=== PATIENT | female | born 1995 | race Asian ===

== ENCOUNTER 2017-06-06 12:24 | Emergency (ER) | payer OTHER ==
[2017-06-06 12:33] VITALS: BP 102/59; PULSE 90; RESP 18; TEMP 98.6; O2SAT 95
--- NOTE | 2017-06-06 14:25 | EDPHY ---
H & P Smoking Status: Current every day smoker HPI/ROS: Chief complaint: Cold symptoms History of present illness: This is a 21-year-old female who presents to the emergency department for evaluation of cold symptoms. Patient reports the onset of symptoms over the last day. She reports fever, runny nose, nasal congestion , sore throat, cough, body aches and fatigue. Symptoms have been persistent. She denies other associated signs or symptoms including no trouble breathing, no rash. Review of systems: A 10 point review of systems was obtained and other than described above was negative (Sandro Machado) Physical Exam: General Appearance: Alert, nontoxic. Eyes: Pupils equal and round no pallor or injection. ENT, Mouth: Mucous membranes moist. Tympanic membranes, external auditory canals , external ears and surrounding soft tissue including over the mastoids are unremarkable. Nasopharynx is mildly injected. There is clear rhinorrhea. Oropharynx is injected. There is no edema. There is no exudate. There is no asymmetry. The uvula is midline. No elevation of the tongue. There is no hoarseness, no drooling, no trismus, no stridor. Respiratory: There are no retractions, lungs are clear to auscultation. Cardiovascular: Regular rate and rhythm. Neurological: Alert and oriented x4. Strength and sensation intact and symmetrical. No meningismus. Skin: Warm and dry, no rashes. Musculoskeletal: Neck is supple non tender. Extremities are symmetrical, full range of motion. Psychiatric: Patient is oriented X 3, there is no agitation. (Sandro Machado) Constitutional: Initial Vital Signs Temperature (C) 37 C 06/06/17 12:29 Heart Rate 90 06/06/17 12:29 Respiratory Rate 18 06/06/17 12:29 Blood Pressure 102/59 L 06/06/17 12:29 O2 Sat (%) 95 06/06/17 12:29 O2 Delivery Mode Room Air Allergies/Adverse Reactions: No Known Allergies Allergy (Verified 06/06/17 12:28) Home Medications: Medication Instructions Recorded [place] Carbonate 06/06/17 Oseltamivir Phosphate [Tamiflu 75 75 mg PO BID 5 Days cap 06/06/17 mg (*)] Zoloft 100mg (*) 06/06/17 MDM/Departure - [facility] ED Course/Re-evaluation: Patient seen under the supervision of my secondary supervising physician Dr. Janell Shepherd. Patient presents to the emergency department for cold symptoms. She is influenza A positive. She is nontoxic. Vital signs are stable. She is within treatment time frame for Tamiflu. I have discussed the risks and benefits of treatment using this versus symptomatic care while she heals. She would like to start Tamiflu. This is prescribed. Home care is discussed. Return precautions are given. The patient voiced understanding and agreement with plan. (Sandro Machado) The patient was evaluated and managed by the physician supply chain assistant. I have reviewed this chart and I agree with the findings and plan of care as documented , as indicated by my signature. I am the secondary supervising physician. ( Janell Shepherd) Differential Diagnosis: Included but not limited to influenza, other viral syndromes, URI including sinusitis and pharyngitis (Sandro Machado) - Depart Disposition: Home, Routine, Self-Care Clinical Impression: Influenza A Condition: Good Instructions: Influenza (ED) Additional Instructions: Follow-up with a primary care doctor this week for recheck If symptoms worsen or new symptoms develop return to the emergency room for recheck Prescriptions: Oseltamivir Phosphate [Tamiflu 75 mg (*)] 75 mg PO BID 5 Days cap Referrals: NONE *PRIMARY CARE P,. [Primary Care Provider] - As per Instructions [facility],. [Clinic] - As per Instructions
== END 2017-06-06 14:38 | disposition home or self-care (01) ==
DX: J10.1 Influenza due to other identified influenza virus with other respiratory manifestations (principal); F17.200 Nicotine dependence, unspecified, uncomplicated

== ENCOUNTER 2018-08-27 01:11 | Emergency (ER) | payer OTHER ==
[2018-08-27] MEDS ORDERED: LIDOCAINE 2% VISCOUS 15 ML UDCUP PO ONE (01:32)
[2018-08-27] MEDS ORDERED: MAG HYDROX/AL HYDROX/SIMETH 30 ML UDCUP PO ONE (01:32)
--- NOTE | 2018-08-27 01:32 | EDPHY ---
H & P Stated Complaint: pt c/o abd pain, intermittant N/D Time Seen by Provider: 08/27/18 01:20 HPI/ROS: Chief Complaint: Abdominal pain HPI: 23-year-old woman presenting with 1 week of waxing waning epigastric abdominal pain. Patient states the pain is there during course of the day. Is not move. Is about a 5/10. Some nausea but no vomiting. She is having some loose stools every other day. No blood or dark black stools. She does have a history of an appendectomy in the past. No fevers or chills. No chest pain or shortness of breath. There are no aggravating or alleviating factors. Last menstrual cycle was 2 weeks ago. It was normal. Patient is not believe she is . ROS: 10 systems were reviewed and were negative except those elements noted in the HPI. PMH: Bipolar disorder Social History: Uses E cigarettes, no alcohol, no recreational drug use Family History: non-contributory Physical Exam: Gen: Awake, Alert, No Distress HEENT: Nose: no rhinorrhea Eyes: PERRLA, EOMI Mouth: Moist mucosa Neck: Supple, no JVD Chest: nontender, lungs clear to auscultation Heart: S1, S2 normal, no murmur Abd: Soft, mild upper abdominal tenderness, no guarding Back: no CVA tenderness, no midline tenderness Ext: no edema, non-tender Skin: no rash Neuro: CN II-XII intact, Sensation grossly intact, Strength 5/5 in bilateral upper and lower extremities - Personal History LMP (Females 10-55): 8-14 Days Ago Current Tetanus Diphtheria and Acellular Pertussis (TDAP): Yes - Medical/Surgical History Hx Asthma: No Hx Chronic Respiratory Disease: No Hx Diabetes: No Hx Cardiac Disease: No Hx Renal Disease: No Hx Cirrhosis: No Hx Alcoholism: No Hx HIV/AIDS: No Hx Splenectomy or Spleen Trauma: No Other PMH: depression - Social History Smoking Status: Current every day smoker Constitutional: Initial Vital Signs Temperature (C) 37 C 08/27/18 01:13 Heart Rate 77 08/27/18 01:13 Respiratory Rate 16 08/27/18 01:13 Blood Pressure 109/68 08/27/18 01:13 O2 Sat (%) 96 08/27/18 01:13 O2 Delivery Mode Room Air Allergies/Adverse Reactions: No Known Allergies Allergy (Verified 06/06/17 12:28) Home Medications: Medication Instructions Recorded [place] Carbonate 06/06/17 Zoloft 100mg (*) 06/06/17 Ativan 08/27/18 Medical Decision Making ED Course/Re-evaluation: 23-year-old presenting with 1 week of epigastric abdominal pain. Abdomen is soft and benign. Laboratory evaluations are normal. She is not . She has had an appendectomy and in the past. No findings suggestive acute surgical or infectious process. I think her symptoms are more likely consistent with peptic ulcer disease or gastritis. Will start her on famotidine, follow up with primary care as an outpatient. - Data Points Laboratory Results: Laboratory Results 08/27/18 01:40 08/27/18 01:40 08/27/18 08/27/18 08/27/18 01:55 01:40 01:40 WBC RBC Hgb Hct MCV MCH MCHC RDW Plt Count MPV Neut % (Auto) Lymph % (Auto) [place] % (Auto) Eos % (Auto) Baso % (Auto) Nucleat RBC Rel Count Absolute Neuts (auto) Absolute Lymphs (auto) Absolute Monos (auto) Absolute Eos (auto) Absolute Basos (auto) Absolute Nucleated RBC Immature Gran % Immature Gran # Sodium 139 mEq/L mEq/L (135-145) Potassium 3.8 mEq/L mEq/L (3.5-5.2) Chloride 105 mEq/L mEq/L (97-110) Carbon Dioxide 20 mEq/l L mEq/l (22-31) Anion Gap 14 mEq/L mEq/L (6-14) BUN 10 mg/dL mg/dL (7-23) Creatinine 0.6 mg/dL mg/dL (0.6-1.0) Estimated GFR > 60 Glucose 90 mg/dL mg/dL (70-100) Calcium 10.0 mg/dL mg/dL (8.5-10.4) Total Bilirubin 0.9 mg/dL mg/dL (0.1-1.4) AST 19 IU/L IU/L (14-46) ALT 22 IU/L IU/L (9-52) Alkaline Phosphatase 56 IU/L IU/L (38-126) Total Protein 8.0 g/dL g/dL (6.3-8.2) Albumin 4.9 g/dL g/dL (3.5-5.0) Lipase 50 IU/L IU/L (23-300) Beta HCG, Qual NEGATIVE Urine Color YELLOW Urine Appearance HAZY Urine pH 5.0 (5.0-7.5) Ur Specific [place] 1.026 (1.002-1.030) Urine Protein NEGATIVE (NEGATIVE) Urine Ketones 1+ H (NEGATIVE) Urine Blood NEGATIVE (NEGATIVE) Urine Nitrate NEGATIVE (NEGATIVE) Urine Bilirubin NEGATIVE (NEGATIVE) Urine Urobilinogen 2.0 EU H EU (0.2-1.0) Ur Leukocyte Esterase NEGATIVE (NEGATIVE) Urine Glucose NEGATIVE (NEGATIVE) 08/27/18 01:40 WBC 8.39 10^3/uL 10^3/uL (3.80-9.50) RBC 4.96 10^6/uL 10^6/uL (4.18-5.33) Hgb 13.9 g/dL g/dL (12.6-16.3) Hct 42.7 % % (38.0-47.0) MCV 86.1 fL fL (81.5-99.8) MCH 28.0 pg pg (27.9-34.1) MCHC 32.6 g/dL g/dL (32.4-36.7) RDW 13.2 % % (11.5-15.2) Plt Count 266 10^3/uL 10^3/uL (150-400) MPV 9.8 fL fL (8.7-11.7) Neut % (Auto) 57.5 % % (39.3-74.2) Lymph % (Auto) 33.8 % % (15.0-45.0) Rush % (Auto) 6.3 % % (4.5-13.0) Eos % (Auto) 1.7 % % (0.6-7.6) Baso % (Auto) 0.6 % % (0.3-1.7) Nucleat RBC Rel Count 0.0 % % (0.0-0.2) Absolute Neuts (auto) 4.82 10^3/uL 10^3/uL (1.70-6.50) Absolute Lymphs (auto) 2.84 10^3/uL 10^3/uL (1.00-3.00) Absolute Monos (auto) 0.53 10^3/uL 10^3/uL (0.30-0.80) Absolute Eos (auto) 0.14 10^3/uL 10^3/uL (0.03-0.40) Absolute Basos (auto) 0.05 10^3/uL 10^3/uL (0.02-0.10) Absolute Nucleated RBC 0.00 10^3/uL 10^3/uL (0-0.01) Immature Gran % 0.1 % % (0.0-1.1) Immature Gran # 0.01 10^3/uL 10^3/uL (0.00-0.10) Sodium Potassium Chloride Carbon Dioxide Anion Gap BUN Creatinine Estimated GFR Glucose Calcium Total Bilirubin AST ALT Alkaline Phosphatase Total Protein Albumin Lipase Beta HCG, Qual Urine Color Urine Appearance Urine pH Ur Specific [place] Urine Protein Urine Ketones Urine Blood Urine Nitrate Urine Bilirubin Urine Urobilinogen Ur Leukocyte Esterase Urine Glucose Medications Given: Discontinued Medications Al Hydroxide/Mg Hydroxide (Maalox Susp) 30 ml PO ONCE ONE Stop: 08/27/18 01:33 Last Admin: 08/27/18 01:41 Dose: 30 ml Lidocaine (Lidocaine 2% Viscous) 15 ml PO ONCE ONE Stop: 08/27/18 01:33 Last Admin: 08/27/18 01:41 Dose: 15 ml Departure - Departure Disposition: Home, Routine, Self-Care Clinical Impression: Abdominal pain Condition: Good Instructions: Abdominal Pain (ED), Gastritis (ED) Additional Instructions: You may start taking famotidine available [id number] according to package instructions. Follow up with primary care physician in 4-5 days for re-evaluation. Return to the emergency department for increasing abdominal pain, nausea vomiting, fevers or chills, dark black bowel movements, or any other concerns. Referrals: Sam Leon MD [[facility] Primary Care Provider] - As per Instructions
[2018-08-27 01:48] LABS: PLATELET COUNT 266 10^3/uL (150-400)
[2018-08-27 02:49] VITALS: BP 117/71
== END 2018-08-27 02:49 | disposition home or self-care (01) ==
DX: R10.13 Epigastric pain (principal); Z90.89 Acquired absence of other organs